=== PATIENT | female | born 1970 | race Asian ===

== ENCOUNTER 2022-09-05 10:45 | Outpatient (CLI) | payer OTHER | END 2022-09-05 17:01 | disposition home or self-care (01) | LOC: SMA 10:45 | PROVIDERS: ATTEND Physician Assistant | DX: Z12.31 Encounter for screening mammogram for malignant neoplasm of breast (principal) | CPT/HCPCS: 77067 ==

== ENCOUNTER 2023-02-13 05:50 | Day surgery (SDC) | payer OTHER ==
[~2023-02-13] VITALS: Ht 152.4 cm; Wt 60.3 kg
[2023-02-13] MEDS ORDERED: SIMETHICONE 40 MG/0.6 ML ML ONE (07:20)
[2023-02-13] MEDS ORDERED: fentaNYL CITRATE/PF 100 MCG/2 ML AMP ONE (07:20)
[2023-02-13] MEDS ORDERED: MIDAZOLAM HCL 5 MG/5 ML VIAL ONE (07:21)
[2023-02-13 07:54] VITALS: O2SAT 99
[2023-02-13 14:57] VITALS: BP_SYST 138; PULSE 78; RESP 17
== END 2023-02-13 08:58 | disposition home or self-care (01) ==
LOC: SMU 05:50 → SDS 05:50
PROVIDERS: ATTEND Internal Medicine
DX: K62.5 Hemorrhage of anus and rectum (principal); D12.4 Benign neoplasm of descending colon; K57.30 Diverticulosis of large intestine without perforation or abscess without bleeding; K64.8 Other hemorrhoids; E03.9 Hypothyroidism, unspecified; Z86.010 Personal history of colon polyps; Z79.899 Other long term (current) drug therapy
CPT/HCPCS: 45380; 45385; 99152; 88305; 99153; G0378; J2250; J3010; J7030

== ENCOUNTER 2023-02-16 16:00 | Emergency (ER) | payer OTHER ==
[~2023-02-16] VITALS: Ht 152.4 cm; Wt 60.3 kg
[2023-02-16 16:00] VITALS: BP_SYST 142; PULSE 69; RESP 18; TEMP 98; O2SAT 98
[2023-02-16] MEDS ORDERED: IBUPROFEN 600 MG TABLET PO ONE (16:45)
[2023-02-16] MEDS ORDERED: DIPHTH,PERTUSS(ACELL),TET VAC 0.5 ML VIAL (Tdap) I.M. ONE (16:45)
== END 2023-02-16 17:36 | disposition home or self-care (01) ==
LOC: SED 16:00
DX: S61.012A Laceration without foreign body of left thumb without damage to nail, initial encounter (principal); Z79.899 Other long term (current) drug therapy; W27.2XXA Contact with scissors, initial encounter; Y93.89 Activity, other specified; Y92.89 Other specified places as the place of occurrence of the external cause; Y99.8 Other external cause status
CPT/HCPCS: 90715; 99283

== ENCOUNTER 2023-05-02 07:43 | Emergency (ER) | payer OTHER ==
[~2023-05-02] VITALS: Ht 162.6 cm; Wt 54.4 kg
[2023-05-02 08:09] VITALS: BP_SYST 152; PULSE 83; RESP 18; TEMP 98.3; O2SAT 98
[2023-05-02 08:10] LABS: BILIRUBIN,URINE NEGATIVE (NEGATIVE); BLOOD, URINE 3+ (NEGATIVE); CLARITY/URINE CLEAR (CLEAR); GLUCOSE,URINE NEGATIVE (NEGATIVE); KETONES,URINE NEGATIVE (NEGATIVE); LEUKOCYTE ESTERASE ,URINE 1+ (NEGATIVE); NITRITE, URINE POSITIVE (NEGATIVE); PROTEIN URINE 1+ (NEGATIVE)
[2023-05-02 08:19] LABS: COLOR,URINE AMBER (YELLOW)
[2023-05-02 08:45] LABS: BACTERIA,URINE RARE /HPF (None Seen)
[2023-05-02] MEDS ORDERED: NITR-85 PO (09:01)
[2023-05-02] MEDS ORDERED: PHEN-890 PO (09:01)
[2023-05-02 09:10] VITALS: BP_SYST 152; PULSE 83; RESP 18; TEMP 98.3; O2SAT 98
== END 2023-05-02 09:09 | disposition home or self-care (01) ==
LOC: SED 07:43
DX: N39.0 Urinary tract infection, site not specified (principal); R30.0 Dysuria; R35.0 Frequency of micturition; R39.15 Urgency of urination; Z79.899 Other long term (current) drug therapy
CPT/HCPCS: 81000; 81001; 81015; 87086; 99283

== ENCOUNTER 2023-09-14 06:35 | Day surgery (SDC) | payer OTHER ==
[~2023-09-14] VITALS: Ht 152.4 cm; Wt 60.3 kg
[~2023-09-14 06:35] MED LIST: NITR-85 PO; PHEN-890 PO
[2023-09-14] MEDS: fentaNYL CITRATE/PF 100 MCG/2 ML AMP ONE (09:38)
[2023-09-14] MEDS: MIDAZOLAM HCL 5 MG/5 ML VIAL ONE (09:38)
[2023-09-14 12:15] VITALS: O2SAT 98
[2023-09-14 16:22] VITALS: BP_SYST 136; PULSE 60; RESP 11
== END 2023-09-14 10:55 | disposition home or self-care (01) ==
LOC: SDS 06:35 → SMU 06:36 → SDS 10:55
PROVIDERS: ATTEND Internal Medicine
DX: R11.2 Nausea with vomiting, unspecified (principal); K29.80 Duodenitis without bleeding; K29.50 Unspecified chronic gastritis without bleeding; R14.0 Abdominal distension (gaseous); Z86.010 Personal history of colon polyps; Z79.899 Other long term (current) drug therapy
CPT/HCPCS: 43239; 87081; 36415; 88305; 88312; 88313; G0378; J2250; J3010

== ENCOUNTER 2023-09-22 09:20 | Outpatient (CLI) | payer OTHER | END 2023-09-22 20:54 | disposition home or self-care (01) | LOC: SUS 09:20 | PROVIDERS: ATTEND Internal Medicine | DX: R11.2 Nausea with vomiting, unspecified (principal) | CPT/HCPCS: 76700 ==

== ENCOUNTER 2024-01-08 13:40 | Emergency (ER) | payer OTHER ==
[~2024-01-08] VITALS: Ht 152.4 cm; Wt 78.0 kg
[2024-01-08 13:50] VITALS: BP_SYST 138; PULSE 71; RESP 18; TEMP 96.9; O2SAT 100
[2024-01-08] MEDS ORDERED: IBUP-1969 PO (15:51)
[2024-01-08] MEDS ORDERED: HYDR-3927 PO (15:51)
[2024-01-08 16:07] VITALS: BP_SYST 138; PULSE 71; RESP 18; TEMP 96.9; O2SAT 100
== END 2024-01-08 16:06 | disposition home or self-care (01) ==
LOC: SED 13:40
DX: M77.8 Other enthesopathies, not elsewhere classified (principal); Z79.899 Other long term (current) drug therapy
CPT/HCPCS: 73140; 99283